=== PATIENT | male | born 1965 | race Caucasian/White ===

== ENCOUNTER 2017-11-03 11:18 | Observation (INO) | payer OTHER ==
[2017-11-03] MEDS: CEFAZOLIN 1 GM/50 ML (PMX) 50 ML IVPB (11:00)
[~2017-11-03 11:18] MED LIST: SUGAMMADEX SODIUM 200 MG/2 ML VIAL IV
[2017-11-03] MEDS ORDERED: ROCURONIUM 50 MG INJ (11:31)
[2017-11-03] MEDS ORDERED: DEXAMETHASONE 4 MG/ML 1 ML INJ ×2 (11:31→13:41)
[2017-11-03] MEDS ORDERED: PROPOFOL 20 ML (11:31)
[2017-11-03] MEDS ORDERED: MIDAZOLAM 1 MG/ML 2 ML INJ (11:31)
[2017-11-03] MEDS ORDERED: ROPIVACAINE 0.5 % 30 ML VIAL (11:31)
[2017-11-03] MEDS ORDERED: FENTAnyl 50 MCG/ML VIAL ×2 (11:31→13:41)
[2017-11-03] MEDS ORDERED: CEFAZOLIN 1 GM INJ (11:31)
[2017-11-03] MEDS ORDERED: GLYCOPYRROLATE 0.4 MG INJ (11:31)
[2017-11-03] MEDS ORDERED: NEOSTIGMINE 3 MG/3 ML SYRINGE (11:31)
[2017-11-03] MEDS ORDERED: ONDANSETRON 4 MG INJ (11:31)
[2017-11-03] MEDS ORDERED: IPRATROPIUM (NEB) 0.5 MG/2.5 ML AMP HHN (13:30)
[2017-11-03] MEDS ORDERED: EPHEDrine SULFATE 50 MG/5 ML SYG IV (13:30)
[2017-11-03] MEDS ORDERED: DIPHENHYDRAMINE 50 MG INJ IV (13:30)
[2017-11-03] MEDS ORDERED: FENTAnyl 50 MCG/ML VIAL IV ×3 (13:30)
[2017-11-03] MEDS ORDERED: TRIMETHOBENZAMIDE 100 MG/ML VIAL IM (13:30)
[2017-11-03] MEDS ORDERED: hydrALAzine 20 MG INJ IV (13:30)
[2017-11-03] MEDS ORDERED: HYDROmorphONE 1 MG/5 ML IV SYRINGE IV ×3 (13:30)
[2017-11-03] MEDS ORDERED: ONDANSETRON 4 MG INJ IV (13:30)
[2017-11-03] MEDS ORDERED: OXYCODONE/ACETAMINOPHEN (5/325) TAB PO ×2 (13:30)
[2017-11-03] MEDS ORDERED: LABETALOL HCL 20MG INJ IV (13:30)
[2017-11-03] MEDS ORDERED: ALBUTEROL 0.083% (NEB) 2.5 MG/3 ML AMP HHN (13:30)
[2017-11-03] MEDS ORDERED: MEPERIDINE 25 MG INJ IV (13:30)
[2017-11-03] MEDS ORDERED: MIDAZOLAM 1 MG/ML 2 ML INJ IV (13:30)
[2017-11-03] MEDS: POLYMYXIN/BACITRACIN 1L IRRIG (14:17)
[2017-11-03] MEDS ORDERED: morphine 2 MG INJ IV (15:00)
[2017-11-03] MEDS: SOD CHLORIDE 0.9% 1,000 ML IV ×2 (15:55→18:21)
[2017-11-03] MEDS: HYDROCODONE/APAP (5/325) TAB PO ×2 (15:59→16:42)
[2017-11-03] MEDS: CEFAZOLIN 2 GM/50 ML (PMX) 50 ML IVPB (16:42)
[2017-11-04] MEDS: CEFAZOLIN 2 GM/50 ML (PMX) 50 ML IVPB ×2 (01:20→09:14)
[2017-11-04] MEDS: SOD CHLORIDE 0.9% 1,000 ML IV ×2 (02:01→12:30)
== END 2017-11-04 15:25 | disposition home or self-care (01) ==
LOC: SDS 11:18 → REC 14:34 → MS1 18:10
DX: K40.31 Unilateral inguinal hernia, with obstruction, without gangrene, recurrent (principal)
CPT/HCPCS: 49521